=== PATIENT | male | born 1990 | race Caucasian/White ===

== ENCOUNTER 2017-03-19 17:26 | Emergency (ER) | payer OTHER ==
[~2017-03-19] VITALS: Ht 185.4 cm; Wt 71.0 kg
[~2017-03-19 17:26] MED LIST: ALBUTEROL SULF8.5 GM IH; AZITHROMYCIN250 MG PO; AZITHROMYCIN250 MG1 PO; CHERATUSSIN AC473 ML PO; DIAZEPAM2 MG PO; IBUPROFEN600 MG PO; MOTRIN800 MG PO; NAPROSYN250 MG PO; NAPROXEN500 MG PO; NOHOMEMEDS; PREDNISONE10 M1 PO; PREDNISONE20 MG PO; PREDNISONE50 MG PO; PROAIR RESPICL90 MCG IH; ROBITUSSIN AC,T10 ML PO; ROBITUSSIN DM118 ML PO; TESSALON200 MG PO; ULTRAM50 MG PO
[2017-03-19 17:38] VITALS: BP 122/76
[2017-03-19] MEDS ORDERED: ZITHROMAX Z-PA250 MG PO (19:45)
[2017-03-19] MEDS ORDERED: DELTASONE20 M1 PO (19:45)
== END 2017-03-19 20:09 | disposition home or self-care (01) ==
LOC: EME 17:26
DX: J40 Bronchitis, not specified as acute or chronic (principal); F17.200 Nicotine dependence, unspecified, uncomplicated; Z71.6 Tobacco abuse counseling
CPT/HCPCS: 99281; 99284